=== PATIENT | male | born 1995 | race Caucasian/White ===

== ENCOUNTER 2021-05-09 01:22 | Emergency (ER) | payer OTHER ==
[~2021-05-09] VITALS: Ht 182.8 cm; Wt 95.2 kg
[2021-05-09 01:45] VITALS: BP 175/90
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
[2021-05-09] MEDS ORDERED: CEPH500T PO (02:08)
== END 2021-05-09 02:11 | disposition home or self-care (01) ==
LOC: ER 01:26
DX: S06.0X0A Concussion without loss of consciousness, initial encounter (principal); S01.112A Laceration without foreign body of left eyelid and periocular area, initial encounter; R40.2410 Glasgow coma scale score 13-15, unspecified time; Y04.2XXA Assault by strike against or bumped into by another person, initial encounter
CPT/HCPCS: 99282